=== PATIENT | male | born 1990 | race Caucasian/White ===

== ENCOUNTER 2024-12-18 21:10 | Emergency (ER) | payer BC ==
[2024-12-18] MEDS: Benzonatate 100 MG Cap PO ONE (22:09)
[2024-12-18] MEDS: Albuterol 6.7 GM Inhaler INH ONE (22:09)
[2024-12-19] MEDS: Doxycycline Monohydrate 100 MG Cap PO ONE (00:21)
== END 2024-12-19 00:23 | disposition home or self-care (01) ==
LOC: MW.ED 21:10
DX: J06.9 Acute upper respiratory infection, unspecified (principal); Z79.899 Other long term (current) drug therapy
CPT/HCPCS: 71046; 87651; 99285; A9270; J3535; 99283